=== PATIENT | female | born 1970 | race Caucasian/White ===

== ENCOUNTER 2016-05-26 08:00 | Inpatient (IN) | payer MEDICAID ==
[~2016-05-26] VITALS: Ht 149.9 cm; Wt 52.2 kg
[~2016-05-26 08:00] MED LIST: DOCU-30 PO; FAMO-79 PO; HYDR-3138 PO; IRON1TAB60 PO; MULT-706 PO; NITR100C56 PO; OMEP-110 PO; ONDA4SOL2 PO; ONDA4TAB7 PO; ONDA8TAB9 PO; OXYC5CAP4 PO; PANT20TA3 PO
[2016-05-26 09:50] VITALS: BP 102/65
[2016-05-26 11:14] LABS: HEMOGLOBIN 10.8 g/dL (11.7-16.4)
[2016-05-26 11:26] LABS: ASPARTATE AMINO TRANSFERASE 9 U/L (15-37); BLOOD UREA NITROGEN 12 mg/dL (7-18)
[2016-05-26] MEDS ORDERED: OXYcodone IR 5MG TABLET PO PRN (13:30)
[2016-05-26] MEDS ORDERED: FOSAPREPITANT 150 MG in SODIUM CHLORIDE 0.9% 145 ML IV ONE (14:00)
[2016-05-26] MEDS ORDERED: ONDANSETRON 16 MG, DEXAMETHASONE 12 MG in DEXTROSE 5% 50 ML IV ONE (14:00)
[2016-05-26] MEDS: PANTOPROZOLE 40MG TABLET PO SCH (14:23)
[2016-05-26] MEDS ORDERED: DOCETAXEL IV ONE (14:30)
[2016-05-26] MEDS ORDERED: DEXTROSE 5% IV ONE ×2 (14:30)
[2016-05-26] MEDS ORDERED: OXALIPLATIN IV ONE (14:30)
[2016-05-26 15:02] VITALS: BP 114/77
[2016-05-26] MEDS: FLUOROURACIL IV SCH (20:34)
[2016-05-26] MEDS: DEXTROSE 5% IV SCH (20:34)
[2016-05-26 20:35] VITALS: BP 92/55
[2016-05-27 03:07] VITALS: BP 99/61
[2016-05-27 06:50] VITALS: BP 110/74
[2016-05-27] MEDS: PANTOPROZOLE 40MG TABLET PO SCH (09:39)
[2016-05-27 12:50] VITALS: BP 99/62
[2016-05-27 18:40] VITALS: BP 109/67
[2016-05-27] MEDS: ENOXAPARIN 40 MG/0.4 ML SQ SCH (18:41)
[2016-05-27] MEDS: DEXTROSE 5% IV SCH (20:12)
[2016-05-27] MEDS: FLUOROURACIL IV SCH (20:12)
[2016-05-28 02:11] VITALS: BP 107/65
[2016-05-28 06:25] VITALS: BP 96/58
[2016-05-28] MEDS: PANTOPROZOLE 40MG TABLET PO SCH (09:02)
[2016-05-28 13:13] VITALS: BP 94/57
[2016-05-28] MEDS: ENOXAPARIN 40 MG/0.4 ML SQ SCH (18:04)
[2016-05-28 20:10] VITALS: BP 106/65
== END 2016-05-28 23:01 | disposition home or self-care (01) | DRG 847 ==
LOC: 3NW 09:18
PROVIDERS: ADMIT Internal Medicine Hematology & Oncology; ATTEND Internal Medicine Hematology & Oncology
DX: Z51.11 Encounter for antineoplastic chemotherapy (principal); C16.9 Malignant neoplasm of stomach, unspecified; C78.6 Secondary malignant neoplasm of retroperitoneum and peritoneum; L65.9 Nonscarring hair loss, unspecified
CPT/HCPCS: 36415; 80053; 85025; J1100; J1453; J1650; J2405; J7060; J7070; J9171; J9190; J9263

== ENCOUNTER → 2016-06-06 | Outpatient (CLI) | payer MEDICAID | END | disposition home or self-care (01) | LOC: CFH 08:52 | PROVIDERS: ATTEND Internal Medicine Hematology & Oncology | DX: Z12.31 Encounter for screening mammogram for malignant neoplasm of breast (principal); Z85.028 Personal history of other malignant neoplasm of stomach; N63 Unspecified lump in breast | CPT/HCPCS: G0202 ==

== ENCOUNTER 2016-06-16 09:40 | Inpatient (IN) | payer MEDICAID ==
[~2016-06-16] VITALS: Ht 149.9 cm; Wt 54.3 kg
[2016-06-16 11:18] VITALS: BP 114/73
[2016-06-16 12:09] LABS: HEMOGLOBIN 11.4 g/dL (11.7-16.4)
[2016-06-16 12:21] LABS: BLOOD UREA NITROGEN 15 mg/dL (7-18)
[2016-06-16 12:24] LABS: ASPARTATE AMINO TRANSFERASE 19 U/L (15-37)
[2016-06-16] MEDS ORDERED: D5%-0.45% NACL 1,000 ML IV SCH (13:00)
[2016-06-16 13:07] VITALS: BP 105/68
[2016-06-16] MEDS ORDERED: ONDANSETRON IV ONE ×2 (14:00)
[2016-06-16] MEDS ORDERED: DEXAMETHASONE IV ONE ×2 (14:00)
[2016-06-16] MEDS ORDERED: DEXTROSE 5% IV ONE ×6 (14:00→16:30)
[2016-06-16] MEDS ORDERED: OXALIPLATIN IV ONE ×2 (14:30)
[2016-06-16] MEDS: ENOXAPARIN 40 MG/0.4 ML SQ SCH (15:20)
[2016-06-16] MEDS ORDERED: DOCETAXEL IV ONE ×2 (16:00→16:30)
[2016-06-16] MEDS ORDERED: FLUOROURACIL IV SCH (17:00)
[2016-06-16] MEDS ORDERED: DEXTROSE 5% IV SCH (17:00)
[2016-06-16] MEDS: SODIUM CHLORIDE 0.45% 1,000 ML IV SCH (18:30)
[2016-06-16 20:00] VITALS: BP 110/67
[2016-06-16] MEDS: FLUOROURACIL IV SCH (20:17)
[2016-06-16] MEDS: DEXTROSE 5% IV SCH (20:17)
[2016-06-17 03:38] VITALS: BP 122/79
[2016-06-17] MEDS ORDERED: PROCHLORPERAZINE 25 MG SUPP PR PRN (06:30)
[2016-06-17] MEDS ORDERED: ONDANSETRON 2MG/ML, 2ML IVPush PRN (06:30)
[2016-06-17] MEDS ORDERED: PROCHLORPERAZINE 5 MG/ML, 2ML IVPush PRN (06:30)
[2016-06-17] MEDS ORDERED: ONDANSETRON 8 MG TABLET PO PRN (06:30)
[2016-06-17] MEDS ORDERED: PROCHLORPERAZINE 10MG TABLET PO PRN (06:30)
[2016-06-17] MEDS: SODIUM CHLORIDE 0.45% 1,000 ML IV SCH ×2 (07:38→21:48)
[2016-06-17 07:45] VITALS: BP 121/68
[2016-06-17] MEDS ORDERED: SODIUM CHLORIDE 0.9% IV ONE (14:00)
[2016-06-17] MEDS ORDERED: DEXTROSE 5% IV ONE (14:00)
[2016-06-17] MEDS ORDERED: DEXAMETHASONE IV ONE (14:00)
[2016-06-17] MEDS ORDERED: ONDANSETRON IV ONE (14:00)
[2016-06-17 14:05] VITALS: BP 111/67
[2016-06-17] MEDS: ENOXAPARIN 40 MG/0.4 ML SQ SCH (16:00)
[2016-06-17 20:00] VITALS: BP 128/74
[2016-06-17] MEDS: DEXTROSE 5% IV SCH (21:43)
[2016-06-17] MEDS: FLUOROURACIL IV SCH (21:43)
[2016-06-18 02:00] VITALS: BP 104/62
[2016-06-18 08:11] VITALS: BP 109/69
[2016-06-18] MEDS: SODIUM CHLORIDE 0.45% 1,000 ML IV SCH (10:20)
[2016-06-18 14:19] VITALS: BP 114/73
[2016-06-18] MEDS: ENOXAPARIN 40 MG/0.4 ML SQ SCH (15:59)
[2016-06-18 17:32] LABS: ASPARTATE AMINO TRANSFERASE 43 U/L (15-37); BLOOD UREA NITROGEN 12 mg/dL (7-18)
[2016-06-18 20:00] VITALS: BP 131/80
== END 2016-06-18 23:00 | disposition home or self-care (01) | DRG 847 ==
LOC: 3NW 10:25
PROVIDERS: ADMIT Specialist; ATTEND Specialist
DX: Z51.11 Encounter for antineoplastic chemotherapy (principal); C16.6 Malignant neoplasm of greater curvature of stomach, unspecified; Z92.21 Personal history of antineoplastic chemotherapy
CPT/HCPCS: 36415; 71010; 80053; 83735; 84702; 85025; 93005; J1100; J1650; J2405; J7060; J7070; J9171; J0780; J9190; J9263

== ENCOUNTER → 2016-06-25 | Outpatient (CLI) | payer MEDICAID ==
[~2016-06-25] MED LIST changes: +OMNIPAQUE 350 MG/ML, 100ML BOTTLE ONE
== END | disposition home or self-care (01) ==
LOC: RAD 16:01
PROVIDERS: ATTEND Internal Medicine Hematology & Oncology
DX: C78.6 Secondary malignant neoplasm of retroperitoneum and peritoneum (principal); R91.1 Solitary pulmonary nodule; K76.9 Liver disease, unspecified
CPT/HCPCS: 74160; J1642; Q9967